=== PATIENT | female | born 1975 | race Caucasian/White ===

== ENCOUNTER → 2017-01-07 | Outpatient (CLI) | payer BC ==
[~2017-01-07] MED LIST: ARMOUR THYROID60 MG PO; BACTRIM DS 8001 TAB PO; CORTEF5 MG PO; FLORINEF ACETA0.1 MG PO; HEPARIN; HYDROCORTISONE5 M1 PO; LORTAB 7.5/5001 TAB PO; MOTRIN 600600 MG/TAB PO; NORCO 325 MG-51 TAB PO; NYSTATIN 5500 MU/TAB PO; PERCOCET 325 MG1 TA2 PO; PRENATAL MVI PO; PRENATAL1 TA1; PRILOSEC10 MG PO; PROBIOTICA100 Milli1; PYRIDIUM 100MG100 MG PO; SENOKOT S 50 MG1 TAB PO; SINGULAIR 110 MG/TAB; SINGULAIR 110 MG/TAB PO; SYNTHROID0.075 MG/T PO; VITAMIN B COMPL1 SGL; VITAMIN D 400400 IU; VITAMIN D 77 MG1 TAB PO; ZYRTEC 10MG10 MG; [UNRECOGNIZED DRUG - CODE] SQ; [UNRECOGNIZED DRUG - OTHER]
== END ==
LOC: COL.RAD 08:03
DX: R11.0 Nausea (principal)
CPT/HCPCS: A9541

== ENCOUNTER → 2017-02-11 | Outpatient (CLI) | payer BC | LOC: COL.RAD 02-04 12:04 | DX: R10.9 Unspecified abdominal pain (principal); R11.0 Nausea | CPT/HCPCS: A9537 ==

== ENCOUNTER 2017-05-04 09:45 | Outpatient (RCR) | payer BC | END 2017-05-13 08:16 | disposition home or self-care (01) | LOC: MKS.ESL.PT 09:45 | DX: M25.551 Pain in right hip (principal); M25.561 Pain in right knee ==

== ENCOUNTER 2017-06-08 09:45 | Outpatient (RCR) | payer BC | END 2017-07-30 08:51 | disposition home or self-care (01) | LOC: MKS.ESL.PT 09:45 | DX: G43.109 Migraine with aura, not intractable, without status migrainosus (principal) ==

== ENCOUNTER 2017-10-01 10:00 | Outpatient (RCR) | payer BC | END 2017-10-08 14:23 | disposition home or self-care (01) | LOC: MKS.ESL.PT 10:00 | DX: M25.511 Pain in right shoulder (principal); G43.109 Migraine with aura, not intractable, without status migrainosus ==

== ENCOUNTER 2018-05-11 11:00 | Outpatient (RCR) | payer BC ==
[2018-04-08 10:53] LABS: BILIRUBIN UNCONJUGATED 0.2 mg/dL (0.0-1.1); BILIRUBIN,DIRECT 0.1 mg/dL (0.0-0.4); BILIRUBIN,TOTAL 0.4 mg/dL (0.0-1.0)
[2018-04-08 11:05] VITALS: BP 117/76; PULSE 79; TEMP 98
--- NOTE | 2018-04-08 13:45 | NUR ---
Pt discharged per ambulation by nurse with . to drive pt home.
--- NOTE | 2018-05-10 14:00 | NUR ---
Pt called today to schedule apt for wed05/11/18.appointment made.
[~2018-05-11] VITALS: Ht 172.7 cm; Wt 95.0 kg
--- NOTE | 2018-05-11 09:53 | NUR ---
Pt called to cancel today's apt.pt requests to reschedule for another day.Pt rescheduled for wednesday05/13/18.
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
[2018-05-11 11:00] VITALS: BP 129/82; PULSE 86
[~2018-05-11 11:00] MED LIST changes: +BENADRYL25 M2 PO; +EXCEDRIN1 TAB PO; +MELATONIN5 M1 SL; +NAMENDA XR 28MG PO; +NATURAL MAGNES200 MG PO; +RIBOFLAVIN100 MG PO; +ZOFRAN 4MG T4 MG/TAB PO
[2018-05-11] MEDS ORDERED: FLONASEALLERGY NS (11:20)
[2018-05-11 11:41] LABS: ALBUMIN 4.3 gm/dL (3.5-5.0); BILIRUBIN UNCONJUGATED 0.2 mg/dL (0.0-1.1); BILIRUBIN,DIRECT 0.2 mg/dL (0.0-0.4); BILIRUBIN,TOTAL 0.4 mg/dL (0.0-1.0); TOTAL PROTEIN 7.3 gm/dL (6.4-8.2)
--- NOTE | 2018-05-11 14:30 | NUR ---
pER PT REPORT NAUSEA AND HEADACHE ARE GONE AT THIS TIME.pATIENT'S MOTHER HERE TO PICK PT UP.
[2018-05-11 14:40] VITALS: BP 126/63; PULSE 73
== END 2018-07-07 | disposition home or self-care (01) ==
LOC: EUO
PROVIDERS: Family Medicine
DX: G43.109 Migraine with aura, not intractable, without status migrainosus (principal)
CPT/HCPCS: J0780; J3475; J7040

== ENCOUNTER → 2018-09-13 | Outpatient (CLI) | payer BC ==
[~2018-09-13] MED LIST changes: +FLONASEALLERGY NS
== END ==
LOC: MC.RAD 08-08 10:45
DX: Z12.31 Encounter for screening mammogram for malignant neoplasm of breast (principal)

== ENCOUNTER → 2019-09-27 | Outpatient (CLI) | payer BC | LOC: MC.RAD 09:00 | DX: Z12.31 Encounter for screening mammogram for malignant neoplasm of breast (principal) ==

== ENCOUNTER → 2020-10-01 | Outpatient (CLI) | payer BC ==
[~2020-10-01] MED LIST changes: +PEPCID 20MG TAB20 MG PO; +SYMJEPI0.3 MG/0.3 IJ
== END ==
LOC: MC.RAD 09:12
DX: Z12.31 Encounter for screening mammogram for malignant neoplasm of breast (principal)

== ENCOUNTER → 2020-12-31 | Outpatient (CLI) | payer BC | LOC: COL.LAB 13:46 | DX: R53.83 Other fatigue (principal); K58.9 Irritable bowel syndrome, unspecified; G43.909 Migraine, unspecified, not intractable, without status migrainosus ==

== ENCOUNTER 2021-01-27 15:56 | Emergency (ER) | payer BC ==
[~2021-01-27] VITALS: Ht 172.7 cm; Wt 90.0 kg
[~2021-01-27 15:56] MED LIST changes: -PEPCID 20MG TAB20 MG PO; -SYMJEPI0.3 MG/0.3 IJ
[2021-01-27 16:02] VITALS: TEMP 97.9
[2021-01-27] MEDS ORDERED: SYMJEPI0.3 MG/0.3 IJ ×3 (18:28→19:01)
[2021-01-27] MEDS ORDERED: PEPCID 20MG TAB20 MG PO ×3 (18:28→19:01)
[2021-01-27 18:35] VITALS: BP 124/78; PULSE 76
== END 2021-01-27 18:35 | disposition home or self-care (01) ==
LOC: COL.ER 15:56
DX: T78.49XA Other allergy, initial encounter (principal)

== ENCOUNTER 2021-01-29 16:48 | Emergency (ER) | payer BC ==
[~2021-01-29] VITALS: Ht 172.7 cm; Wt 90.0 kg
[~2021-01-29 16:48] MED LIST changes: +PEPCID 20MG TAB20 MG PO; +SYMJEPI0.3 MG/0.3 IJ
[2021-01-29 17:00] VITALS: BP 115/76; PULSE 84; TEMP 98.4
== END 2021-01-29 18:10 | disposition home or self-care (01) ==
LOC: COL.ER 16:48
DX: T78.49XA Other allergy, initial encounter (principal)

== ENCOUNTER 2021-05-30 12:45 | Outpatient (RCR) | payer BC | END 2021-06-02 | disposition home or self-care (01) | LOC: MKS.ESL.PT | DX: M25.532 Pain in left wrist (principal); Z98.890 Other specified postprocedural states ==

== ENCOUNTER 2021-06-25 11:15 | Outpatient (RCR) | payer BC | END 2021-07-03 | disposition still patient (30) | LOC: MKS.ESL.PT | DX: M25.532 Pain in left wrist (principal); Z98.890 Other specified postprocedural states ==

== ENCOUNTER → 2021-07-04 | Outpatient (CLI) | payer BC | LOC: COL.RAD 09:26 | DX: R10.12 Left upper quadrant pain (principal) ==

== ENCOUNTER 2021-07-07 13:54 | Outpatient (RCR) | payer BC | END 2021-08-02 | disposition home or self-care (01) | LOC: MKS.ESL.PT | DX: M25.532 Pain in left wrist (principal); Z98.890 Other specified postprocedural states ==

== ENCOUNTER 2021-08-15 14:45 | Outpatient (RCR) | payer BC | END 2021-08-15 16:03 | disposition home or self-care (01) | LOC: MKS.ESL.PT 14:45 | DX: M25.532 Pain in left wrist (principal); Z98.890 Other specified postprocedural states ==

== ENCOUNTER → 2021-10-03 | Outpatient (CLI) | payer BC | LOC: MC.RAD 08:59 | DX: Z12.31 Encounter for screening mammogram for malignant neoplasm of breast (principal) ==

== ENCOUNTER → 2022-01-22 | Outpatient (CLI) | payer BC | LOC: MC.RAD 09:12 | DX: I89.0 Lymphedema, not elsewhere classified (principal); M79.629 Pain in unspecified upper arm ==

== ENCOUNTER → 2022-02-02 | Outpatient (RCR) | payer BC | END | disposition still patient (30) | LOC: PT.GENESIS | DX: Z98.890 Other specified postprocedural states (principal) ==

== ENCOUNTER 2022-02-04 12:42 | Emergency (ER) | payer BC ==
[~2022-02-04] VITALS: Ht 172.7 cm; Wt 97.7 kg
[2022-02-04 12:56] VITALS: TEMP 98.2
[2022-02-04 14:35] VITALS: BP 124/83; PULSE 85
== END 2022-02-04 14:35 | disposition home or self-care (01) ==
LOC: COL.ER 12:42
DX: M79.661 Pain in right lower leg (principal)
CPT/HCPCS: J1650

== ENCOUNTER → 2022-02-05 | Outpatient (CLI) | payer BC | LOC: COL.VAS 07:55 | DX: R60.0 Localized edema (principal); M79.604 Pain in right leg ==

== ENCOUNTER 2022-04-30 15:00 | Outpatient (RCR) | payer BC | END 2022-05-05 | disposition home or self-care (01) | LOC: WSPT | DX: I89.0 Lymphedema, not elsewhere classified (principal) ==

== ENCOUNTER 2023-04-28 09:30 | Outpatient (RCR) | payer BC | END 2023-05-05 | disposition home or self-care (01) | LOC: WSPT | DX: I89.0 Lymphedema, not elsewhere classified (principal) ==

== ENCOUNTER 2023-05-28 09:30 | Outpatient (RCR) | payer BC | END 2023-06-03 | disposition home or self-care (01) | LOC: WSPT | DX: I89.0 Lymphedema, not elsewhere classified (principal) ==

== ENCOUNTER 2023-07-01 13:00 | Outpatient (RCR) | payer BC | END 2023-07-04 | disposition home or self-care (01) | LOC: WSPT | DX: R60.9 Edema, unspecified (principal) ==

== ENCOUNTER 2023-09-01 13:45 | Outpatient (RCR) | payer BC | END 2023-09-03 | disposition home or self-care (01) | LOC: WSPT | DX: R60.9 Edema, unspecified (principal) ==

== ENCOUNTER → 2023-11-11 | Outpatient (CLI) | payer BC | LOC: MC.RAD 08:22 | DX: Z12.31 Encounter for screening mammogram for malignant neoplasm of breast (principal) ==

== ENCOUNTER → 2024-01-03 | Outpatient (RCR) | payer BC | LOC: WSPT | DX: R60.9 Edema, unspecified (principal) ==

== ENCOUNTER 2024-01-31 15:00 | Outpatient (RCR) | payer BC | END 2024-02-03 | LOC: WSPT | DX: R60.9 Edema, unspecified (principal) ==